=== PATIENT | female | born 1995 | race Caucasian/White ===

== ENCOUNTER 2018-03-21 21:36 | Emergency (ER) | payer MEDICAID, OTHER ==
[~2018-03-21] VITALS: Ht 182.9 cm; Wt 111.9 kg
[~2018-03-21 21:36] MED LIST: DIAZ2TAB PO
[2018-03-21 21:42] VITALS: BP 128/72
[2018-03-21] MEDS ORDERED: ibuprofen tablet 400 MG TABLET PO ONE (22:15)
== END 2018-03-21 22:52 | disposition home or self-care (01) ==
LOC: ER 21:37
DX: M25.532 Pain in left wrist (principal); Z91.040 Latex allergy status; Z79.899 Other long term (current) drug therapy; W01.0XXA Fall on same level from slipping, tripping and stumbling without subsequent striking against object, initial encounter; Y93.89 Activity, other specified; Y92.89 Other specified places as the place of occurrence of the external cause; Y99.8 Other external cause status
CPT/HCPCS: 29125; 73090; 73130; 99283

== ENCOUNTER 2019-04-25 13:15 | Outpatient (CLI) | payer MEDICAID ==
[2019-04-25 16:28] LABS: BASOPHILS % (AUTO) 0.2 % (0-1); EOSINOPHILS % (AUTO) 0.3 % (0-6); HEMOGLOBIN 12.9 g/dl (12.0-16.0); LYMPHOCYTES # (AUTO) 1.6 X10'3 (1.1-4.8); LYMPHOCYTES % (AUTO) 17.1 % (21-51); MEAN CORPUSCULAR HEMOGLOBIN 27.8 PG (27.0-31.0); MEAN CORPUSCULAR VOLUME 84.2 FL (78-98); MEAN PLATELET VOLUME 8.7 FL (7.4-10.4); MONOCYTES # (AUTO) 0.6 X10'3 (0-0.9); NEUTROPHILS % (AUTO) 76.4 % (42-75); PLATELET COUNT 453 X10'3 (140-440); RED BLOOD COUNT 4.62 X10'6 (4.20-5.60); RED CELL DISTRIBUTION WIDTH 16.1 % (11.5-14.5); WHITE BLOOD COUNT 9.1 X10'3 (4.5-11.0)
[2019-04-25 16:40] LABS: ALANINE AMINOTRANSFERASE 25 U/L (12-78); ALBUMIN 4.2 G/DL (3.4-5.0); ALBUMIN/GLOBULIN RATIO 1.2 (1.1-1.5); ALKALINE PHOSPHATASE 122 IU/L (46-116); ANION GAP 9 (8-16); ASPARTATE AMINO TRANSFERASE 14 U/L (10-37); BILIRUBIN,TOTAL 0.4 MG/DL (0.1-1.0); BLOOD UREA NITROGEN 9 MG/DL (7-18); BUN/CREATININE RATIO 12.2 (6.6-38.0); CALCIUM 9.5 MG/DL (8.5-10.1); CHLORIDE 102 MMOL/L (99-107); CREATININE 0.74 MG/DL (0.40-0.90); GLUCOSE 82 MG/DL (70-104); PHOSPHORUS 3.3 MG/DL (2.3-4.5); POTASSIUM 4.5 MMOL/L (3.5-5.1); SODIUM 138 MMOL/L (135-145); TOTAL CARBON DIOXIDE 26.7 MMOL/L (24-32); TOTAL PROTEIN 7.6 G/DL (6.4-8.2); TRIGLYCERIDES 112 MG/DL (20-135); eGFR > 90 ML/MIN
== END 2019-04-25 23:59 | disposition home or self-care (01) ==
LOC: LAB SPEC 13:15
PROVIDERS: ATTEND Internal Medicine Gastroenterology
DX: K31.84 Gastroparesis (principal)
CPT/HCPCS: 36415; 80053; 83735; 84100; 84478; 85025

== ENCOUNTER 2019-05-25 11:13 | Day surgery (SDC) | payer MEDICAID ==
[~2019-05-25] VITALS: Ht 182.9 cm; Wt 110.2 kg
[2019-05-25] MEDS ORDERED: normal saline 1000ml 1,000 ML IV PRN (11:30)
[2019-05-25 11:45] VITALS: BP 113/71
[2019-05-25 12:11] LABS: BASOPHILS % (AUTO) 0.4 % (0-1); EOSINOPHILS % (AUTO) 0.4 % (0-6); HEMATOCRIT 37.5 % (35.0-45.0); HEMOGLOBIN 12.7 g/dl (12.0-16.0); LYMPHOCYTES # (AUTO) 1.7 X10'3 (1.1-4.8); LYMPHOCYTES % (AUTO) 19.8 % (21-51); MEAN CORPUSCULAR HEMOGLOBIN 27.7 PG (27.0-31.0); MEAN CORPUSCULAR HGB CONC 33.9 g/dL (33.0-36.5); MEAN CORPUSCULAR VOLUME 81.6 FL (78-98); MEAN PLATELET VOLUME 7.8 FL (7.4-10.4); MONOCYTES # (AUTO) 0.5 X10'3 (0-0.9); MONOCYTES % (AUTO) 5.5 % (2-12); NEUTROPHILS # (AUTO) 6.4 X10'3 (1.8-7.7); NEUTROPHILS % (AUTO) 73.9 % (42-75); PLATELET COUNT 444 X10'3 (140-440); RED CELL DISTRIBUTION WIDTH 15.7 % (11.5-14.5); WHITE BLOOD COUNT 8.6 X10'3 (4.5-11.0)
[2019-05-25] MEDS ORDERED: DESV100T PO (12:15)
[2019-05-25] MEDS ORDERED: CIME300L4 GT (12:15)
[2019-05-25] MEDS ORDERED: LAMO100T2 PO (12:15)
[2019-05-25] MEDS ORDERED: HYDR-3686 PO (12:15)
[2019-05-25] MEDS ORDERED: LORA-269 PO (12:15)
[2019-05-25] MEDS ORDERED: PRAZ1CAP5 PO (12:15)
[2019-05-25] MEDS ORDERED: PALI234D IM (12:15)
[2019-05-25 12:20] LABS: ALBUMIN 3.8 G/DL (3.4-5.0); ANION GAP 11 (8-16); BLOOD UREA NITROGEN 11 MG/DL (7-18); BUN/CREATININE RATIO 12.8 (6.6-38.0); CALCIUM 9.2 MG/DL (8.5-10.1); CHLORIDE 105 MMOL/L (99-107); CREATININE 0.86 MG/DL (0.40-0.90); GLUCOSE 94 MG/DL (70-104); POTASSIUM 4.2 MMOL/L (3.5-5.1); SODIUM 140 MMOL/L (135-145); TOTAL CARBON DIOXIDE 24.4 MMOL/L (24-32); eGFR 81 ML/MIN
[2019-05-25] MEDS ORDERED: LIDOcaine 1%/PF 5ML 10 MG/ML VIAL ONE (13:52)
[2019-05-25] MEDS ORDERED: midazolam 2 mg/2 ml injection ONE (14:01)
[2019-05-25] MEDS ORDERED: fentaNYL/PF 50MCG/1 ML 2ML syringe ONE (14:02)
[2019-05-25] MEDS ORDERED: normal saline 1000ml 1,000 ML IV SCH (14:56)
[2019-05-25 15:00] VITALS: BP 115/64
[2019-05-25 15:15] VITALS: BP 110/69
[2019-05-25 15:30] VITALS: BP 115/59
[2019-05-25 15:45] VITALS: BP 102/61
[2019-05-25 16:00] VITALS: BP 109/71
== END 2019-05-25 16:20 | disposition home or self-care (01) ==
LOC: SSTAY O 11:13
PROVIDERS: ATTEND Radiology Diagnostic Radiology
DX: T82.598A Other mechanical complication of other cardiac and vascular devices and implants, initial encounter (principal); Z91.040 Latex allergy status; Z91.018 Allergy to other foods; Z79.01 Long term (current) use of anticoagulants; Y83.8 Other surgical procedures as the cause of abnormal reaction of the patient, or of later complication, without mention of misadventure at the time of the procedure; Y92.89 Other specified places as the place of occurrence of the external cause
CPT/HCPCS: 36415; 36558; 36589; 76937; 77001; 80048; 85025; 85610; 99152; 99153; C1751; C1769; C1894; J2250; J3010; J7030; A9270

== ENCOUNTER 2019-07-11 17:04 | Emergency (ER) | payer MEDICAID ==
[~2019-07-11] VITALS: Ht 180.3 cm; Wt 111.9 kg
[~2019-07-11 17:04] MED LIST changes: +CIME300L4 GT; +DESV100T PO; -DIAZ2TAB PO; +HYDR-3686 PO; +LAMO100T2 PO; +LORA-269 PO; +PALI234D IM; +PRAZ1CAP5 PO
[2019-07-11 17:06] VITALS: BP 117/76
== END 2019-07-11 18:29 | disposition home or self-care (01) ==
LOC: ER 17:05
DX: S82.62XA Displaced fracture of lateral malleolus of left fibula, initial encounter for closed fracture (principal); Z98.890 Other specified postprocedural states; Z91.040 Latex allergy status; Z79.899 Other long term (current) drug therapy; X50.1XXA Overexertion from prolonged static or awkward postures, initial encounter; Y93.89 Activity, other specified; Y92.89 Other specified places as the place of occurrence of the external cause; Y99.8 Other external cause status
CPT/HCPCS: 29515; 73610; 73630; 99284

== ENCOUNTER → 2019-12-15 | Outpatient (CLI) | payer MEDICAID ==
[2019-12-15 18:03] LABS: ALANINE AMINOTRANSFERASE 21 U/L (12-78); ALBUMIN 3.6 G/DL (3.4-5.0); ALBUMIN/GLOBULIN RATIO 1.1 (1.1-1.5); ALKALINE PHOSPHATASE 112 IU/L (46-116); ANION GAP 11 (8-16); ASPARTATE AMINO TRANSFERASE 15 U/L (10-37); BASOPHILS % (AUTO) 0.5 % (0-1); BILIRUBIN,TOTAL 0.2 MG/DL (0.1-1.0); BLOOD UREA NITROGEN 11 MG/DL (7-18); BUN/CREATININE RATIO 13.6 (6.6-38.0); CALCIUM 9.2 MG/DL (8.5-10.1); CHLORIDE 102 MMOL/L (99-107); CREATININE 0.81 MG/DL (0.40-0.90); EOSINOPHILS % (AUTO) 0.6 % (0-6); GLUCOSE 103 MG/DL (70-104); HEMATOCRIT 39.8 % (35.0-45.0); HEMOGLOBIN 12.8 g/dl (12.0-16.0); LYMPHOCYTES # (AUTO) 1.4 X10'3 (1.1-4.8); LYMPHOCYTES % (AUTO) 20.7 % (21-51); MEAN CORPUSCULAR HEMOGLOBIN 27.3 PG (27.0-31.0); MEAN CORPUSCULAR HGB CONC 32.2 g/dL (33.0-36.5); MEAN PLATELET VOLUME 8.4 FL (7.4-10.4); MONOCYTES # (AUTO) 0.4 X10'3 (0-0.9); MONOCYTES % (AUTO) 5.3 % (2-12); NEUTROPHILS # (AUTO) 5.1 X10'3 (1.8-7.7); NEUTROPHILS % (AUTO) 72.9 % (42-75); PLATELET COUNT 407 X10'3 (140-440); POTASSIUM 4.3 MMOL/L (3.5-5.1); RED BLOOD COUNT 4.68 X10'6 (4.20-5.60); RED CELL DISTRIBUTION WIDTH 15.5 % (11.5-14.5); SODIUM 138 MMOL/L (135-145); TOTAL CARBON DIOXIDE 24.6 MMOL/L (24-32); TOTAL PROTEIN 6.9 G/DL (6.4-8.2); TRIGLYCERIDES 234 MG/DL (20-135); eGFR 87 ML/MIN
== END | disposition home or self-care (01) ==
LOC: LAB SPEC 17:40
PROVIDERS: ATTEND Internal Medicine Gastroenterology
DX: K31.84 Gastroparesis (principal)
CPT/HCPCS: 36415; 80053; 83735; 84100; 84478; 85025